=== PATIENT | male | born 1980 | race Caucasian/White ===

== ENCOUNTER 2018-09-27 13:16 | Emergency (ER) | payer MEDICAID ==
--- NOTE | 2018-09-27 14:36 | EDPHY ---
H & P Stated Complaint: since friday noted tingling pain numbness r 4th 5th digits andwrist/arm - Personal History Current Tetanus Diphtheria and Acellular Pertussis (TDAP): Yes - Medical/Surgical History Hx Asthma: No Hx Chronic Respiratory Disease: No Hx Diabetes: No Hx Cardiac Disease: No Hx Renal Disease: No Hx Cirrhosis: No Hx Alcoholism: No Hx HIV/AIDS: No Hx Splenectomy or Spleen Trauma: No Other PMH: denies - Social History Smoking Status: Current every day smoker Time Seen by Provider: 09/27/18 14:36 HPI/ROS: CHIEF COMPLAINT: Numbness and weakness right-hand HISTORY OF PRESENT ILLNESS: This 38-year-old male, right-hand dominant, this had multiple right hand fractures with surgery 8 years ago. He presents today complaining of numbness and tingling of the 4th and 5th digits of his right hand. He noticed this 2 nights ago. The numbness and tingling is persistent. He has also had pain along the medial aspect of his right hand and arm. He notices that his right technical lead is diminished; he was unable to shave this morning because of hand weakness. He denies neck pain. He has had no recent head or neck trauma. He has no personal history of diabetes. He has not taken any medications for this problem. REVIEW OF SYSTEMS: A ten system review of systems was performed and is negative with the exception of the items mentioned in the HPI. Past medical/surgical history: 1. Tobacco abuse 2. History of alcohol abuse, none for 8 years 2. Blood transfusion after scalp wound 3. Surgery for right hand fractures 4. Left carpal tunnel release 5. Left inguinal hernia repair Family history: Diabetes in grandparents. Social history: No alcohol use for the past 8 years. He smokes 1/2 pack of cigarettes daily. 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 He is here with his girlfriend. General Appearance: Alert. Vital signs reviewed. Blood pressure 158/94. Eyes: Pupils equal and round, no conjunctival injection, no discharge. Anicteric. ENT, Mouth: Mucous membranes are moist, no oropharyngeal erythema or edema. Neck: Nontender to palpation over the cervical spine in the midline. Respiratory: Lungs are clear to auscultation; no wheezes, rales, or rhonchi. Cardiovascular: Regular rate and rhythm; no murmur, rub, or gallop. Gastrointestinal: Abdomen is soft and nontender, no masses or organomegaly, bowel sounds normal. Skin: Warm and dry, no rashes on exposed skin, normal color. Multiple tattoos. Back: Nontender to palpation over the thoracolumbar spine. Extremities: No lower extremity edema, no calf tenderness or swelling. Neurological: Alert and oriented. Moving all four extremities easily and equally. Sensation is decreased to light and sharp touch along medial aspect of his right arm extending on to the 4th and 5th digits. Sensation is otherwise intact over the right upper and left upper extremities and both lower extremities. Strength is diminished in right wrist flexion and ulnar abduction , right 4th and 5th digit flexion, , right abduction and adduction of digits, and right technical lead. Deep tendon reflexes are 3+ in the biceps, triceps, and knees bilaterally. Gait is normal. Psychiatric: Normal affect. (Junie Krause) Constitutional: Initial Vital Signs Temperature (C) 37.2 C 09/27/18 13:43 Heart Rate 108 H 09/27/18 13:43 Respiratory Rate 17 09/27/18 13:43 Blood Pressure 158/94 H 09/27/18 13:43 O2 Sat (%) 95 09/27/18 13:43 O2 Delivery Mode Room Air Allergies/Adverse Reactions: No Known Allergies Allergy (Verified 09/27/18 13:43) Home Medications: Medication Instructions Recorded Meloxicam 15 mg PO DAILY #30 tablet 09/27/18 Seroquel 100 mg (*) 09/27/18 Wellbutrin 100mg (*) 09/27/18 methylPREDNISolone [Medrol Dose 4 mg PO DAILY #1 each 09/27/18 Max] Medical Decision Making ED Course/Re-evaluation: 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 He has numbness and weakness in an ulnar distribution. Unclear where the nerve compression is occurring. Given his weakness (dominant hand) I think that it is reasonable to proceed with cervical MRI today. He received an anti-inflammatory, ibuprofen, in the emergency department. ( Junie Krause) Other Provider: I assumed care of this patient from Dr. I assumed care of this patient from Dr. uJnie Krause at 4:00 p.m.. At this time we are awaiting a MRI report. MRI was reported to me by Dr. Ndiaye showing some cervical disc disease on the left side at C6-C7 but no findings on the right. Re-examined the patient. (Yesenia Sepulveda) - Data Points Medications Given: Discontinued Medications Ibuprofen (Motrin) 600 mg PO EDNOW ONE Stop: 09/27/18 14:56 Last Admin: 09/27/18 15:02 Dose: 600 mg Departure - Departure Disposition: Home, Routine, Self-Care Clinical Impression: Ulnar neuropathy Condition: Good Instructions: Meloxicam (By mouth), Peripheral Neuropathy (ED) Additional Instructions: Please follow up with Dr. Spivey as directed. You have an appointment in their office on Friday at 3:00 p.m.. Further evaluation to identify where the nerve compression is arising from may be indicated. We have given you 2 prescriptions, 1 for Medrol Dosepak to help with inflammation and 1 for meloxicam to help with pain. Please use this as directed. Referrals: Nikolay Roberson MD [Medical Doctor] - As per Instructions [facility],. [Clinic] - As per Instructions Wenceslao Spivey MD [Medical Doctor] - As per Instructions (Follow-up on Friday at 3:00 p.m.. Please call [phone] to schedule your appointment and provide information.) Prescriptions: Meloxicam 15 mg PO DAILY #30 tablet methylPREDNISolone [Medrol Dose Max] 4 mg PO DAILY #1 each
[2018-09-27] MEDS ORDERED: IBUPROFEN 600 MG TAB PO ONE (14:55)
[2018-09-27 19:23] VITALS: BP 147/108
== END 2018-09-27 19:26 | disposition home or self-care (01) ==
DX: G56.21 Lesion of ulnar nerve, right upper limb (principal); F17.200 Nicotine dependence, unspecified, uncomplicated

== ENCOUNTER 2018-10-27 14:27 | Emergency (ER) | payer MEDICAID ==
[2018-10-27] MEDS ORDERED: TDAP ADULT 0.5 ML INJ (BOOSTRIX) IM ONE (15:43)
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
[2018-10-27 16:03] VITALS: BP 133/86
== END 2018-10-27 16:02 | disposition home or self-care (01) ==
DX: S09.90XA Unspecified injury of head, initial encounter (principal); S50.311A Abrasion of right elbow, initial encounter; S80.211A Abrasion, right knee, initial encounter; F17.200 Nicotine dependence, unspecified, uncomplicated; V18.4XXA Pedal cycle driver injured in noncollision transport accident in traffic accident, initial encounter; Y92.410 Unspecified street and highway as the place of occurrence of the external cause; Z23 Encounter for immunization

== ENCOUNTER 2018-11-05 19:01 | Emergency (ER) | payer MEDICAID ==
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
[2018-11-05] MEDS ORDERED: HYDROmorphONE/DILAUDID 2 MG/ML INJ IVP ONE (20:18)
[2018-11-05] MEDS ORDERED: KETOROLAC 30 MG/1 ML SDV IVP ONE (20:48)
[2018-11-05 21:57] VITALS: BP 154/94
== END 2018-11-05 21:30 | disposition home or self-care (01) ==
LOC: EDUNIT#
DX: S00.211A Abrasion of right eyelid and periocular area, initial encounter (principal); S00.81XA Abrasion of other part of head, initial encounter; S40.211A Abrasion of right shoulder, initial encounter; M54.6 Pain in thoracic spine; R07.89 Other chest pain; F41.9 Anxiety disorder, unspecified; F32.9 Major depressive disorder, single episode, unspecified; V18.4XXA Pedal cycle driver injured in noncollision transport accident in traffic accident, initial encounter; Y92.410 Unspecified street and highway as the place of occurrence of the external cause; Y93.55 Activity, bike riding
CPT/HCPCS: 96374; A4565; J1170; J1885

== ENCOUNTER 2018-11-07 09:03 | Emergency (ER) | payer MEDICAID ==
[2018-11-07 09:10] VITALS: BP 138/72
[2018-11-07] MEDS ORDERED: OXYCODONE/APAP 5/325 TAB PO ONE (09:22)
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
== END 2018-11-07 10:02 | disposition home or self-care (01) ==
DX: S49.91XA Unspecified injury of right shoulder and upper arm, initial encounter (principal); V19.9XXD Pedal cyclist (driver) (passenger) injured in unspecified traffic accident, subsequent encounter; Y93.55 Activity, bike riding